=== PATIENT | male | born 1980 | race Caucasian/White ===

== ENCOUNTER 2017-01-26 12:46 | Inpatient (IN) | payer OTHER ==
[~2017-01-26] VITALS: Ht 180.3 cm; Wt 93.1 kg
[2017-01-26 13:47] LABS: BASOPHIL % 0.5 % (0-2); PLATELET COUNT 231 x10^3mcL (130-400); RED CELL DISTRIBUTION WIDTH 12.2 % (11.5-14.5)
[2017-01-26] MEDS ORDERED: GLIPIZIDE10 M2 PO (13:54)
[2017-01-26] MEDS ORDERED: METFORMIN HCL850 MG PO (13:54)
[2017-01-26] MEDS ORDERED: HYDROCHLOROTH12.5 M2 PO (13:54)
[2017-01-26] MEDS ORDERED: LISINOPRIL40 MG PO (13:54)
--- NOTE | 2017-01-26 14:05 | NUR ---
PT CAME INTO ED C/O PAIN AND SWELLING TO HIS RIGHT FOOT. PT REPORTS THAT X2 WEEKS AGO HE INJURED HIS FOOT. PT STATES, "A BOX FELL ON MY FOOT," AND INJURED HIS TWO MIDDLE TOES. PT REPOTS NOT TAKING CARE OF HIS INJURY AND STATES "POSSIBLE INFECTION." FOOT SWELLING IS ON HIS RIGHT FOOT/ MID CALF. PT SHOWS NO SIGNS OF DISTRESS. PT SHOWS NO SIGNS OF RESP DISTRESS. PT'S RESP IS EVEN AND UNLABORED. PT IS AAOX4. PT IN COMFORT POSITION WITH CALL LIGHT WITHIN REACH.
[2017-01-26 14:10] LABS: CALCIUM 8.5 mg/dL (8.5-10.1); CARBON DIOXIDE 22.9 mmol/L (21-32); CREATININE SERUM 1.6 mg/dL (0.7-1.3); POTASSIUM SERUM 4.4 mmol/L (3.5-5.1)
[2017-01-26 14:15] LABS: BILIRUBIN TOTAL 0.4 mg/dL (0.20-1.00)
[2017-01-26 14:16] LABS: ALBUMIN 2.1 g/dL (3.4-5.0); TOTAL PROTEIN, SERUM 8.5 g/dL (6.4-8.2)
[2017-01-26 14:30] LABS: CHOLESTEROL/HDL RATIO 2.1
[2017-01-26 14:33] LABS: FREE T4 1.42 ng/dL (0.76-1.46); T4(THYROXINE) 8.1 ug/dL (4.7-13.3)
--- NOTE | 2017-01-26 14:46 | NUR ---
REPORT GIVEN TO EMIL LOBATO RN
[2017-01-26 14:51] LABS: T3 TOTAL 1.07 ng/mL
--- NOTE | 2017-01-26 14:55 | NUR ---
SECOND IV ABX INFUSING AT THIS TIME, PLEASE SEE EMAR, PT TOLERATED WELL, PT REPORTS NO PAIN AT THIS TIME, STS "ONLY WHEN I STAND THEN IT HURTS RIGHT NOW IM FINE", PT RESP EVEN AND UNLABORED, IN NO ACUTE DISTRESS
[2017-01-26 15:19] VITALS: BP 176/95
--- NOTE | 2017-01-26 15:36 | NUR ---
RECEIVED PATIENT FROM ED VIA GUERNEY, PATIENT WITH NO C/O PAIN AT THIS TIME, PHYSICIAN AT BEDSIDE, ORIENTED PATIENT TO ROOM AND SURROUNDINGS, BED IN LOW POSITION, BED RAILS UP X 2, CALL LIGHT WITHIN REACH, WILL ENDORSE CARE TO PRIMARY NURSE YADIRA
--- NOTE | 2017-01-26 15:58 | NUR ---
RECIEVED PATIENT ALERT AND ORIENTED TIMES FOUR. PATIENT AT FIRST NOTE IS WITH FOUL ODOR STEMMING FROM THE RIGHT FOOT. ON CLOSER INSPECTION NOTED THE MUSHY AND GRAYISH COLORING TO THE TOES OF THE RIGHT FOOT. PATIENT HAS WHAT APPEARS TO BE DEADENED TISSUE TO THE THREE TOES OF THE SECOND, THIRD AND FOURTH TOE AND QUESTIONABLE AFFECTD TO THE GREAT TOE AND THE FIFTH TOE. PATIENT HAS MULTIPLE SCABBED AREAS AND WHEN ASKED ABOUT THE WOUNDS HE STATES WHEN THE RIGHT FOOT STARTED GETTING SWELLING HE STARTED SCRUBBING THE LEGS AND THE LEFT LEG WITH A BATH BRUSH OR A ROUGH SPONGE AND HE SCRUBBED HARD ENOUGH TO REMOVE SOME OF THE SKIN WELL. THIS LEFT SCABBED AREAS. PATIENT WITH SWELLING OF 3-4 PLUS TO THE LOWER RIGHT EXTREMITY AND SWELLING ALSO NOTED THE LEFT LEG AND FOOT OF 2-3. PATIENT STATES HE HAS DIABETES AND IS GOOD ABOUT CHECKING IS DIET AND SUGAR AND NOTED AT THIS TIME BLOOD SUGAR AT 110. A1C IS ALSO GOOD WELL. PATEINT HAS A HISTORY OF A BOX DROPPING ON THE RIGHT FOOT AND AN INGROWN TOE NAIL ALREADY AFFECTING THE FOOT PRIOR TO THAT. 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 PATIENT STATES HE WORKED FOR SEVERAL DAYS WITH THE FOOT SWELLING AND DESIDED TO COME IN TO THE EMERGENCY ROOM WHEN THE FOOT HAD GOTTON WORSE. THE PATIENT HAS HYPERTENSION AND DID NOT TAKE HIS MEDICATION TODAY. HE HAS RECIEVED ANTIBIOTIC IN THE EMERGENCY ROOM AND PATEINT HAS BEEN DRINKING WATER BUT NO FOOD EXCEPT A COUPLE BITS OF A SANDWICH EARLIER TODAY. PATIENT SEEN BY THE RESIDENT FOR PODIATRY AND ADVISED OF THE PLAN OF OF CARE. PATIENT DOES NOT WANT AN AMPUTAION OF MORE THAN THREE TOES AND IS AWARE OF INFECTION IS QUICKLY SPREAD AND CAN CAUSE SPEPSIS AND THE PATIENT COULD FROM THIS TYPE OF INFECTION. THE RECOMENDATION IS TO HAVE SURGERY AND CLEAN OUT THE AREA AND REMOVE THE AFFECTED BONES. PATIENT HAS OSTEOMYLITIS AND GAS GANGRENE IN THE FOOT AND BONES. PATIENT WAS GIVEN THE OPTION FOR IV ANTIBIOTICS BUT WAS STRONGLY ADVISED ON THE FIRST OPTION, THE RISK IS HIGH DUE TO HIS ALREADY ADVANCED INFECTION TO THE FOOT. PATIENT PREFERS THOUGH, THE LESS AGRESSIVE AND TO REMOVE THE TOES TWO THROUGH FOUR AND ANTIBIOTIC THERAPY AND IF THE FOOT DOES NOT IMPROVE THEN HE WILL CONSIDER THE AMPUTAION OF THE PART OF THE FOOT AND REMAINDER OF HIS TOES. THE SPARES SCHEDULER RESIDENT CLEANED AND DRESSED THE WOUND AND PHOTOS TAKEN INDICATED. PATIENT IS CALLING FAMILY AND HE IS THINKING OVER THE PROGNOSIS ENCOURAGED. PATIENT IS TO REMAIN NPO FOR POSSIBLE SURGERY TONIGHT. WILL CONTINUE TO MONITOR AND ANSWER CONCERNS INDICATED. VITALS AT THIS TIME AT 176/95, 102, 18, 110 MAP, 100.7, 100%. PATEINT WITH NOTED LABS OF WBC AT 14.4, H AND HF IS AT 8.3/25, NA AT 132, BUN AT 32.0 AND CREATININE AT 1.6. IV TO THE LEFT AC. NOO COMPLAINTS OF PAIN NOTED AND STATES ONLY MILD AND NO PINS AND NEEDLES FEELING TO EITHER FOOT AND LEG.
[2017-01-26 16:07] LABS: RED BLOOD CELLS 2.91 M/mm3 (4.52-5.90)
[2017-01-26 16:33] LABS: IRON 18 ug/dL (65-170); TOTAL IRON BINDING CAPACITY 242 ug/dL (250-450)
[2017-01-26 16:44] VITALS: Ht 180.3 cm; Wt 93.1 kg
[2017-01-26 17:30] VITALS: BP 170/90
--- NOTE | 2017-01-26 17:43 | NUR ---
PATIENT HAD THE CINTIA WASH AND SIGNED CONSENT AFTER SALES AGENT PROTECTIVE SERVICE SPOKE WITH THE PATIENT AND CESAR CERVANTES FOR THE PARTIAL FOOT AMPUTATION. PATIENT MOTHER AND SON AT BEDSIDE AND SUPPORTIVE WITH CARE. PATIENT IS ANXIOUS AND RESERVED [facility] STAFF AND LEFT THE FAMILY TO TALK AMONST THEMSELVES INDICATED. PATIENT MARKED THE FOOT AND PATEINT SIGNED A NEW CONSENT FOR THE PROCEDURE AGREED ON. PATIENT GIVEN LISINOPRIL AND HCTZ INDICATED FOR BP ELEVATION AND PATIENT GIVEN WITH A SIP OF WATER. PATIENT REMOVED THE PANTS AND THE SALES AGENT PROTECTIVE SERVICE REDRESSED THE SITE AGAIN. AWAITING OR CREW FOR FITNESS COORDINATOR. GAVE REPORT TO THE STAFF IN OR AND THEY ARE AWARE AND HAVE JUST NOW ARRIVED FOR FITNESS COORDINATOR.
--- NOTE | 2017-01-26 18:00 | NUR ---
DOWN TO SURGERY AT THIS TIME. FOR AMPUTATION TO THE PARTIAL OF THE RIGHT FOOT. WILL ENDORSE TO ON COMING SHIFT.
--- NOTE | 2017-01-26 19:30 | NUR ---
REC'D REPORT FROM SMITH MAY. PT IN OR AT THIS TIME. WILL WAIT FOR PT.
[2017-01-26 19:57] LABS: UA SPECIFIC GRAVITY 1.025 (1.005-1.035); microscopic required? YES; urine erythrocyte 3+ (NEGATIVE)
[2017-01-26 20:24] LABS: AMPHETAMINE QUAL UR POSITIVE (NEG <=1000)
--- NOTE | 2017-01-26 20:55 | NUR ---
REC'D REPORT FROM GABRIELE IN PACU.
[2017-01-26 21:05] VITALS: BP 123/73
--- NOTE | 2017-01-26 21:05 | NUR ---
REC'D PT FROM PACU. PT IS S/P TRANSMETATARSAL AMPUTATION RIGHT FOOT WITH ACHILLES TENDON LENGTHENING. PT IS AAOX4. TELE #12 NSR. PT C/O 8/10 THROBBING PAIN TO RLE. WILL MEDICATE. LUNG SOUNDS CLEAR. NO SOB NOTED. TRACE EDEMA NOTED TO LLE. BS ACTIVE X4. SPLINT WITH EM WRAP NOTED TO RLE, CDI. SCABS NOTED TO LLE, PAINTER BOTTOM. IVF INFUSING TO LAC PER DOCTOR'S ORDER. INTACT AND PATENT. SAFETY AND COMFORT MEASURES IN PLACE. BED IN LOWEST POSITION. CALL LIGHT WITHIN REACH. WILL CONTINUE TO MONITOR.
--- NOTE | 2017-01-26 21:21 | NUR ---
MEDICATED PT WITH MORPHINE 2MG IV FOR 810 RLE PAIN (SEE MAR).
--- NOTE | 2017-01-26 22:42 | NUR ---
REC'D CALL FROM LAB REGARDING PT'S H/H=6.4/. PT IS ASSYMPTOMATIC. DR LIZ MADE AWARE. DR LIZ ORDERED TO SALINE LOCK PT AT 0100 AND H/H WILL BE RECHECKED IN AM.
[2017-01-27 03:10] LABS: ovalocyte/elliptocyte 1+; rbc morphology (normal/abnorm) ABNORMAL (NORMAL)
--- NOTE | 2017-01-27 05:32 | NUR ---
PT RESTING IN BED. NO DISTRESS NOTED. PT REMAINS SALINE LOCK. EMPTIED 10 ML OF SEROSANGUINOUS FLUID FROM CIPRIANO DRAIN. CALL LIGHT WITHIN REACH. WILL CONTINUE TO MONITOR.
[2017-01-27 05:37] LABS: BASOPHIL % 0.1 % (0-2)
[2017-01-27 05:45] LABS: PLATELET COUNT 163 x10^3mcL (130-400); RED CELL DISTRIBUTION WIDTH 12.3 % (11.5-14.5)
[2017-01-27 05:53] LABS: CALCIUM 7.9 mg/dL (8.5-10.1); CARBON DIOXIDE 21.8 mmol/L (21-32); CREATININE SERUM 1.7 mg/dL (0.7-1.3); MAGNESIUM 1.8 mg/dL (1.8-2.4); POTASSIUM SERUM 5.3 mmol/L (3.5-5.1)
--- NOTE | 2017-01-27 06:02 | NUR ---
REC'D CALL FROM LAB. PT'S H/H = 6.2. DR LIZ MADE AWARE. NO NEW ORDERS RECEIVED. WILL CONTINUE TO MONITOR.
[2017-01-27 06:19] LABS: rbc morphology (normal/abnorm) ABNORMAL (NORMAL)
[2017-01-27 07:21] VITALS: BP 125/77
--- NOTE | 2017-01-27 08:00 | NUR ---
RECIEVE PATIENT ALERT AND ORIENTED TIMES FOUR. JAYME HAS BEEN RESTING QUIETLY AND HAD HAD XRAY THIS AM AND RESULTS RECIEVED AND GAVE TO THE DR MCLAUGHLIN AND THE INTERNS INDICATED. THE PODIATRY AT BEDSIDE AND REMOVED THE DRESSING TO THE FOOT AND NOTED STITCHES TO THE AREA OF THE FOOT WHERE THERE WAS ONCE TOES AND THE SUTURE LINE IS CLEAN AND NO SIGNS OF INFLAMATION AT THIS TIME. THE CIPRIANO WAS WITH MINIMAL OUTPUT AND WOULD NOT STAY INFLATED AND THE PODIATRY RESIDENT IS AWARE AND HE HAS NOW REMOVED THE CIPRIANO AND LEAVING A SMALL HOLE ON THE SUTURE LINE. PATIENT HAS BEEN ADVISED OF PLAN OF CARE AND THERE WILL BE IN THE NEAR FUTURE A CLOSURE OF THE SMALL OPENING AT THE BEDSIDE. PATIENT HAS MARKEDLY LESS SWELLING AND THE LEG IS ALMOST LIKE A PRUNE IN THE REDUCTION IT IS WRINKLED AND SKIN IS LOOSE. PATIENT HAS A REDUCTION IN THE REDNESS OF THE SKIN WELL. PATIENT TOLERATED THE PROCEDURE BUT IS ASKING FOR PAIN MEDICATION. GAVE MORPHINE ORDERED AND WILL MONITOR FOR EFFECTIVENESS. PATIENT HAS CLEAR BREATH SOUNDS AND BOWEL SOUNDS ACTIVE AND ABDOMEN IS SOFT AND FLAT. PATIENT MCG[place]AN BEEN PALE AND NOTED THE H AND H OF 6.2 AND 25. VITALS AT THIS TIME ARE STABLE AT 110/60, 20, 98.7, 100% ON ROOM AIR. PULSE IS AT 76 AT THIS TIME. WILL GIVE ORDERED THE BENADRYL AND TYELNOL WITH LASIX BETWEEN UNITS OF BLOOD INDICATED. PATEINT SIGNED CONSENT FOR BLOOD. HUNG THE CLEOCIN ORDERED AND WILL START THE BLOOD POST. C
[2017-01-27 09:53] VITALS: BP 120/70
--- NOTE | 2017-01-27 10:41 | NUR ---
STARTED INFUSION OF BLOOD ORDERED AND WILL CONTINUE TO MONITOR. THE MORPHINE GIVEN EARLIER WAS EFFECTIVE. SEEN BY THE INTERNS AND THE DIRECTOR FINANCIAL ANALYSIS AND PLAN OF CARE DISCUSSED. ADVISED THE INTERNS AND THE PODIATRY OF THE RESULTS OF THE XRAY INDICATED. VITALS AT THIS TIME AT 97.3, 118/65, 20, 100%.
[2017-01-27 13:10] VITALS: BP 121/72
--- NOTE | 2017-01-27 14:48 | NUR ---
SECOND UNIT OF BLOOD RUNNING AND TOLERATED WELL SO FAR. PATIENT DENIES ANY ADVERSE REACTION. PATIENT COLOR IS IMPROVING. WILL CONTINUE TO MONITOR.
[2017-01-27 17:30] VITALS: BP 139/80
--- NOTE | 2017-01-27 17:43 | NUR ---
GAVE MORPHINE AND THORAZINE ORDERED. PATIENT HAD BEEN HICCUPING MOST OF HTE DAY AND AT FIRST IT DID NOT BOTHER HIM AND NOW HE IS GETTING ANXIOUS. CALLED FOR ORDERS AND GAVE INDICATED. PATEINT HAS INTERMITTANT PAIN TO THE AFFECTED FOOT AND WILL MONITOR FOR EFFECTIVENESS.
--- NOTE | 2017-01-27 17:59 | NUR ---
PATIENT RESTING QUIETLY AT THIS TIME.
--- NOTE | 2017-01-27 19:40 | NUR ---
PT ALERT/ORIENTED X4. NO C/O PAIN. SEE SKIN ASSESSMENT FOR SKIN INTEGRITY.PT ASSESSED; SEE NSG FLOWSHEET. SAFETY REINFORCED; SEE EDUCAT SHEET. RLE IS ELEVATED ON 2 PILLOWS. ENCOURAGED USE OF INCENTIVE SPIROMETER, PT ACKNOWLEDGED. WILL CONTINUE TO MONITOR.
[2017-01-27 21:04] VITALS: BP 119/72
--- NOTE | 2017-01-27 22:00 | NUR ---
PT SLEEPING. NO DISTRESS NOTED. WILL CONTINUE TO MONITOR.
--- NOTE | 2017-01-27 23:20 | NUR ---
DR SHEFFIELD AND PT SIGNED THE [employer] PATIENT PRODUCT AGREEMENT AND RX FOR CRUTCHES FOR PT
--- NOTE | 2017-01-28 01:27 | NUR ---
PT SLEEPING. BREATHING IS EVEN AND UNLABORED. NO DISTRESS NOTED. WILL CONTINUE TO MONITOR.
--- NOTE | 2017-01-28 03:50 | NUR ---
PT SLEEPING. NO DISTRESS NOTED. WILL CONTINUE TO MONITOR.
--- NOTE | 2017-01-28 05:07 | NUR ---
PT SLEPT IN LONG INTERVALS THROUGHOUT THE NIGHT. NO DISTRESS NOTED. NO C/O PAIN. WILL CONTINUE TO MONITOR.
[2017-01-28 05:54] VITALS: BP 130/79
[2017-01-28 06:11] LABS: BASOPHIL % 0.5 % (0-2); PLATELET COUNT 166 x10^3mcL (130-400); RED CELL DISTRIBUTION WIDTH 13.8 % (11.5-14.5)
[2017-01-28 06:19] LABS: CALCIUM 7.7 mg/dL (8.5-10.1); CARBON DIOXIDE 25.5 mmol/L (21-32); CREATININE SERUM 1.6 mg/dL (0.7-1.3); PHOSPHOROUS 4.6 mg/dL (2.5-4.9); POTASSIUM SERUM 4.6 mmol/L (3.5-5.1)
--- NOTE | 2017-01-28 07:20 | NUR ---
PT IN FOWLERS. AWAKE, COOPERATIVE OF CARE. EFFORTLESS BREATHING, NO DISTRESS. PT DENIES PAIN AT MOMENT. IV PATENT TO LAC WITH 20 GAUGE. BED IN LOWEST POSITION, CALL LIGHT WITHIN REACH.
[2017-01-28 08:40] LABS: rbc morphology (normal/abnorm) ABNORMAL (NORMAL)
[2017-01-28 10:25] VITALS: BP 119/72
--- NOTE | 2017-01-28 11:49 | NUR ---
PT IN LOW FOWLERS. SLEEPING AT MOMENT. NO DISCOMFORT NOTED. EFFORTLESS BREATHING. CALL LIGHT WITHIN REACH.
[2017-01-28 13:09] LABS: BASOPHIL % 0.8 % (0-2); PLATELET COUNT 201 x10^3mcL (130-400); RED CELL DISTRIBUTION WIDTH 13.5 % (11.5-14.5)
[2017-01-28 17:13] VITALS: BP 132/84
--- NOTE | 2017-01-28 18:30 | NUR ---
PT SITTING IN BEDSIDE CHAIR. NO DISTRESS NOTED. WATCHING TV. STATES PAIN IS TOLERABLE AT MOMENT. CALL LIGHT WITHIN REACH.
[2017-01-28 19:45] VITALS: BP 135/80
--- NOTE | 2017-01-28 19:45 | NUR ---
PT SITTING UP IN CHAIR. ALERT AND AWAKE. AOX4. VERBAL WITH CLEAR SPEECH. NO S/S OF RESPIRATORY DISTRESS NOTED. LUNGS CLEAR BILATERALLY. DENIES ANY CHEST PAIN. BOWEL SOUNDS ACTIVE. ABD SOFT AND FLAT. LAST BM 01/28/17. SKIN WARM AND DRY. IV SALINE LOCK TO LEFT AC PATENT AND INTACT. NO S/S OF INFECTION NOTED. NO EDEMA NOTED. PULSE PALPABLE TO LEFT FOOT. RIGHT LEG SPLINT WITH EM WRAP IN PLACE. PT C/O TOLERABLE PAIN TO RLE. INFORMED PT TO STATE IF PAIN GETS WORST, SO THAT IT CAN BE MANAGED. VERBALIZED UNDERSTANDING. NO S/S OF DISTRESS NOTED AT THIS TIME. CALL LIGHT WITHIN REACH. WILL CONTINUE TO MONITOR.
[2017-01-28 21:24] VITALS: BP 132/66
--- NOTE | 2017-01-29 | NUR ---
PT RESTING IN BED WITH EYES CLOSED. BREATHING EQUAL AND UNLABORED. NO S/S OF RESPIRATORY DISTRESS NOTED. IV PATENT AND INTACT. RT LEG SPLINT WITH EM WRAP REMAINS IN PLACE. NO S/S OF DISTRESS OR DISCOMFORT NOTED. CALL LIGHT WITHIN REACH. WILL CONTINUE TO MONITOR.
--- NOTE | 2017-01-29 04:21 | NUR ---
PT ALERT AND AWAKE. PT C/O /10 PAIN TO RLE. RIGHT LEG SPLINT WITH EM WRAP STILL INTACT. PRN NORCO 7.5 MG PO GIVEN. CALL LIGHT WITHIN REACH. WILL CONTINUE TO MONITOR.
[2017-01-29 06:01] VITALS: BP 141/81
[2017-01-29 06:19] LABS: CALCIUM 8.3 mg/dL (8.5-10.1); CARBON DIOXIDE 23.3 mmol/L (21-32); CHLORIDE SERUM 106 mmol/L (98-107); CREATININE SERUM 1.4 mg/dL (0.7-1.3); GFR1 > 60 mL/min; GLUCOSE SERUM 121 mg/dL (74-106); MAGNESIUM 1.8 mg/dL (1.8-2.4); PHOSPHOROUS 5.8 mg/dL (2.5-4.9); POTASSIUM SERUM 4.9 mmol/L (3.5-5.1); SODIUM SERUM 138 mmol/L (136-145)
[2017-01-29 06:24] LABS: BASOPHIL % 0.7 % (0-2); PLATELET COUNT 214 x10^3mcL (130-400); RED CELL DISTRIBUTION WIDTH 13.6 % (11.5-14.5)
--- NOTE | 2017-01-29 06:45 | NUR ---
PT SLEPT INTERMITTENTLY THROUGHOUT THE NIGHT. PT STATES RLE FEELLING BETTER. SWALLOWED ROUTINE MEDICATION WITHOUT DIFFICULTY. IV SALINE LOCK REMAINS PATENT AND INTACT. NO S/S OF INFECTION NOTED. NO ADVERSE REACTIONS NOTED FROM IV CLEOCIN. RESTING WITH RELAXED FACIAL FEATURES. WILL CONTINUE TO MONITOR.
--- NOTE | 2017-01-29 08:00 | NUR ---
PT AWAKE ALERT AND ORIENTED X4, ABLE TO MAKE NEEDS KNOWN. MED SURG PT. PULSES EQUAL BILATERAL NO AFUA ANOTED. CAP REFILL <3SEC. LUNGS CTA, NO C/O SOB OR CP AT THIS TIME. BOWEL TONES ACTIVE IN ALL 4 QUADRANTS. BRP. AMBULATORY WITH ASSIST, CRUTCHES AT BEDSIDE. LEGSPLINT WITH EM WRAP COVERING TO RIGHT EXTREMITY. PT C/O PAIN WILL MEDICATE ACCORING TO MAR. IV THE THE LAC HEPLOCKED. PT IS CALM AND COOPERATIVE WITH CARE AT THIS TIME, WILL CONTINUE TO MONITOR.
[2017-01-29] MEDS ORDERED: FER300 PO (09:28)
[2017-01-29] MEDS ORDERED: THI100 PO (09:30)
[2017-01-29] MEDS ORDERED: FOL1 PO (09:30)
[2017-01-29] MEDS ORDERED: VITC PO (09:30)
[2017-01-29] MEDS ORDERED: THERA TABS1 TAB PO (09:31)
[2017-01-29] MEDS ORDERED: LEVAQUIN500 M1 PO (09:54)
[2017-01-29] MEDS ORDERED: CLINDAMYCIN300 M1 PO (09:55)
[2017-01-29] MEDS ORDERED: LAC PO (09:56)
[2017-01-29 10:08] VITALS: BP 139/81
[2017-01-29] MEDS ORDERED: APAP/HYDROCODON1 T13 PO (10:28)
[2017-01-29] MEDS ORDERED: COL100 PO (10:31)
[2017-01-29 11:09] VITALS: BP 139/81
--- NOTE | 2017-01-29 11:10 | NUR ---
PT RESTING IN BED NO SIGNS OF DISTRESS CALL LIGHT IN REACH WILL CONTINUE TO MONITOR.
--- NOTE | 2017-01-29 13:07 | NUR ---
DISCHARGE INSTRUCTIONS GIVEN TO PT, PT MADE AWARE OF BOTH FOLLOW UP APPTS, PT VERBALIZED UNDERSTANDING. ALL BEONGINGS WITH PT. IV DC'D CATHETER TIP INTACT. PT ESCORTED OFF THE FLOOR ACCOMPANIED BY NURSE.
--- NOTE | 2017-01-29 13:11 | NUR ---
P.T. NOTES RECEIVED P.T. EVAL ORDER FOR CRUTCH TRAINING FOR PT, PT FOUND UP IN CHAIR FINISHING LUNCH, DRESSED IN REGULAR CLOTHES. CRUTCHES ADJUSTED TO PT'S HEIGHT WITH GOOD ELBOW ALIGNMENT "IT ACTUALLY FEELS GOOD AFTER HAVING BEEN ADJUSTED" PT EDUCATED ON SAFE SEQUENCING AND PROGRESSION OF USE OF AXILLARY CRUTCHES WITH STEADY DIRECTIONAL CHANGES. PT DEMONSTRATES GOOD UNDERSTANDING AND RETURN DEMONSTRATION OF EDUCATION PROVIDED. PT DENIES OF PAIN AFTER EVAL, PT LOOKING FORWARD TO GOING HOME. [id number]' [phone]
== END 2017-01-29 13:15 | disposition home or self-care (01) | DRG 710 ==
LOC: ED 12:46 → MU 13:30 → DU 13:30 → MU 01-27 17:32
PROVIDERS: Emergency Medicine; Podiatrist Foot & Ankle Surgery; ADMIT Family Medicine
PROC: 0Y6M0ZB Detachment at Right Foot, Partial 2nd Ray, Open Approach (ICD-10-PCS; 2017-01-26)
PROC: 0Y6M0ZC Detachment at Right Foot, Partial 3rd Ray, Open Approach (ICD-10-PCS; 2017-01-26)
PROC: 0Y6M0ZD Detachment at Right Foot, Partial 4th Ray, Open Approach (ICD-10-PCS; 2017-01-26)
PROC: 0Y6M0ZF Detachment at Right Foot, Partial 5th Ray, Open Approach (ICD-10-PCS; 2017-01-26)
PROC: 0L8V0ZZ Division of Right Foot Tendon, Open Approach (ICD-10-PCS; 2017-01-26)
PROC: 0Y6M0Z9 Detachment at Right Foot, Partial 1st Ray, Open Approach (ICD-10-PCS; principal; 2017-01-26 17:30)
PROC: 30233N1 Transfusion of Nonautologous Red Blood Cells into Peripheral Vein, Percutaneous Approach (ICD-10-PCS; 2017-01-27)
PROC: 0JQQ0ZZ Repair Right Foot Subcutaneous Tissue and Fascia, Open Approach (ICD-10-PCS; 2017-01-29)
DX: A41.9 Sepsis, unspecified organism (principal); N17.0 Acute kidney failure with tubular necrosis; E43 Unspecified severe protein-calorie malnutrition; E11.52 Type 2 diabetes mellitus with diabetic peripheral angiopathy with gangrene; E11.621 Type 2 diabetes mellitus with foot ulcer; D68.69 Other thrombophilia; M86.171 Other acute osteomyelitis, right ankle and foot; E11.69 Type 2 diabetes mellitus with other specified complication; E87.1 Hypo-osmolality and hyponatremia; M86.671 Other chronic osteomyelitis, right ankle and foot; L03.115 Cellulitis of right lower limb; I12.9 Hypertensive chronic kidney disease with stage 1 through stage 4 chronic kidney disease, or unspecified chronic kidney disease; N18.9 Chronic kidney disease, unspecified; D64.9 Anemia, unspecified; E87.5 Hyperkalemia; F10.20 Alcohol dependence, uncomplicated; F12.90 Cannabis use, unspecified, uncomplicated; Y90.9 Presence of alcohol in blood, level not specified; E78.5 Hyperlipidemia, unspecified; I16.0 Hypertensive urgency; E83.39 Other disorders of phosphorus metabolism; Z79.899 Other long term (current) drug therapy; Z79.84 Long term (current) use of oral hypoglycemic drugs; Z83.3 Family history of diabetes mellitus; Z68.28 Body mass index [BMI] 28.0-28.9, adult; Z82.49 Family history of ischemic heart disease and other diseases of the circulatory system
CPT/HCPCS: 82962; 83880; 84439; 94150; G0480; J0360; J1644; J1956; J2250; J2270; J2405; J2543; J2704; J3010; J3490; J7030; P9016; Q0092; Q0161; Q0163